=== PATIENT | male | born 1955 | race Caucasian/White ===

== ENCOUNTER 2024-03-17 08:25 | Outpatient (CLI) | payer MEDICARE, BC ==
[2024-03-17] MEDS ORDERED: iohexol 300mg/ml 100ml inj. ONE (08:36)
== END 2024-03-17 23:59 | disposition home or self-care (01) ==
LOC: RAD 08:25
PROVIDERS: ATTEND Student in an Organized Health Care Education/Training Program
DX: K80.20 Calculus of gallbladder without cholecystitis without obstruction (principal); K57.30 Diverticulosis of large intestine without perforation or abscess without bleeding; R10.12 Left upper quadrant pain; Z98.890 Other specified postprocedural states
CPT/HCPCS: 74177; Q9967